=== PATIENT | male | born 2000 | race American Indian/Alaskan Native ===

== ENCOUNTER 2020-11-04 14:37 | Emergency (ER) | payer OTHER ==
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
[2020-11-04 16:35] VITALS: BP 128/88
== END 2020-11-04 16:26 | disposition home or self-care (01) ==
LOC: ED 14:37
DX: M79.652 Pain in left thigh (principal); V87.7XXA Person injured in collision between other specified motor vehicles (traffic), initial encounter; Y92.410 Unspecified street and highway as the place of occurrence of the external cause; Y93.89 Activity, other specified; Y99.8 Other external cause status
CPT/HCPCS: 99282